=== PATIENT | male | born 1980 | race Caucasian/White ===

== ENCOUNTER → 2017-07-31 | Outpatient (CLI) | payer BC ==
--- NOTE | 2017-07-31 10:32 | US ---
EXAMINATION TYPE: US abdomen complete DATE OF EXAM: 07/31/2017 COMPARISON: NONE CLINICAL HISTORY: R74.8 Elevated liver enzymes. Elevated liver enzymes EXAM MEASUREMENTS: Liver Length: 19.4 cm Gallbladder Wall: 0.2 cm CBD: 0.4 cm Spleen: 12.2 cm Right Kidney: 12.4 x 5.1 x 4.7 cm Left Kidney: 12.5 x 6.0 x 6.1 cm *Technical limitations due to patient's body habitus and large amount of overlying bowel Pancreas: limited evaluation due to overlying bowel content Liver: enlarged, attenuating Gallbladder: no evidence of stones Evidence for sonographic Knight's sign: no CBD: limited evaluation Spleen: wnl Right Kidney: no evidence of hydronephrosis or mass Left Kidney: no evidence of hydronephrosis or mass Upper IVC: wnl Abd Aorta: visualized portions appear wnl, bifurcation obscured IMPRESSION: 1. Mild fatty infiltration of the enlarged liver.
== END | disposition home or self-care (01) ==
LOC: RADUSWWP 07:37
PROVIDERS: ATTEND Family Medicine
DX: K76.0 Fatty (change of) liver, not elsewhere classified (principal)
CPT/HCPCS: 76700

== ENCOUNTER → 2023-11-19 | Outpatient (CLI) | payer BC, OTHER ==
--- NOTE | 2023-11-19 17:56 | CA ---
Transthoracic Echo Report Name: Lang Murray Age: 43 Gender: M : 1980 Exam Date: 11/19/2023 16:06 Exam Location: [facility] Ht (in): 71 Wt (lb): 250 Ordering Physician: Arnol Pineda MD Attending/Referring Phys: Guerda Crane [facility] Business Management Manager Andra Russo RDCS Procedure CPT: Indications: I10 HYPERTENSION Cardiac Hx: Technical Quality: Fair Contrast 1: Total Dose (mL): Contrast 2: Total Dose (mL): MEASUREMENTS (Male / Female) Normal Values 2D ECHO LV Diastolic Diameter PLAX 4.9 cm 4.2 - 5.9 / 3.9 - 5.3 cm LV Systolic Diameter PLAX 3.4 cm IVS Diastolic Thickness 1.3 cm 0.6 - 1.0 / 0.6 - 0.9 cm LVPW Diastolic Thickness 1.3 cm 0.6 - 1.0 / 0.6 - 0.9 cm LV Relative Wall Thickness 0.5 RV Internal Dim ED PLAX 3.4 cm LA Systolic Diameter LX 3.2 cm 3.0 - 4.0 / 2.7 - 3.8 cm LV Diastolic Volume MOD 4C 134.4 cm??? LV Systolic Volume MOD 4C 52.8 cm??? LV Ejection Fraction MOD 4C 60.7 % LV Cardiac Index MOD 4C 2627.1 cm???/min???m??? LV Diastolic Length 4C 9.9 cm LV Systolic Length 4C 8.0 cm LV Diastolic Volume MOD 2C 147.4 cm??? LV Systolic Volume MOD 2C 62.2 cm??? LV Ejection Fraction MOD 2C 57.8 % LV Cardiac Index MOD 2C 2745.6 cm???/min???m??? LV Diastolic Length 2C 10.0 cm LV Systolic Length 2C 8.1 cm M-MODE Aortic Root Diameter MM 3.3 cm LA Systolic Diameter MM 2.6 cm LA Ao Ratio MM 0.8 DOPPLER AV Peak Velocity 176.7 cm/s AV Peak Gradient 12.5 mmHg Mitral E Point Velocity 103.7 cm/s Mitral A Point Velocity 103.7 cm/s Mitral E to A Ratio 1.0 MV Deceleration Time 204.9 ms FINDINGS Left Ventricle Left ventricular ejection fraction is estimated at 55-60 %. Left ventricular cavity size normal. Normal left ventricular systolic function with no obvious regional wall motion abnormalities. Mildly increased left ventricular wall thickness. Right Ventricle Mild right ventricular dilatation. Unable to estimate the right ventricular systolic pressure. Right Atrium Normal right atrial size. No right atrial thrombus or mass seen. Left Atrium Normal left atrial size. No left atrial thrombus or mass present. Mitral Valve Structurally normal mitral valve. No mitral stenosis, or prolapse.trace to mild mitral regurgitation. Aortic Valve Trileaflet aortic valve. No aortic valve stenosis or regurgitation. Tricuspid Valve Structurally normal tricuspid valve. No tricuspid stenosis, or prolapse.trace to mild tricuspid regurgitation. Pulmonic Valve Pulmonic valve not well visualized. No pulmonic regurgitation. Pericardium No pericardial or pleural effusion. Aorta Normal size aortic root and proximal ascending aorta. CONCLUSIONS 1. Normal left ventricular size and systolic function with left ventricular hypertrophy 2. Trace to mild mitral and tricuspid regurgitation Previewed by: Dr. Gamaliel New MD (Electronically Signed) Final Date: 19 November 2023 17:55
== END | disposition home or self-care (01) ==
LOC: RADECHMAIN 15:50
PROVIDERS: ATTEND Family Medicine
DX: I10 Essential (primary) hypertension (principal)
CPT/HCPCS: 93306

== ENCOUNTER → 2023-11-28 | Outpatient (CLI) | payer OTHER ==
--- NOTE | 2023-11-28 16:26 | US ---
EXAMINATION TYPE: US venous doppler duplex LE RT DATE OF EXAM: 11/28/2023 4:02 PM COMPARISON: NONE CLINICAL INDICATION: Male, 43 years old with history of M79.661 PAIN IN RIGHT LOWER LEG; Pain right l eg TECHNIQUE: The lower extremity deep venous system is examined utilizing real time linear array sonog katelynn with graded compression, color doppler sonography, and spectral doppler. SIDE PERFORMED: Right FINDINGS: VESSELS IMAGED: Common Femoral Vein Deep Femoral Vein Greater Saphenous Vein * Femoral Vein Popliteal Vein Small Saphenous Vein * Proximal Calf Veins (* superficial vessels) Grayscale, color doppler, spectral doppler imaging performed of the deep veins of the right lower ext remity. Complex area seen calf area. Measures grossly 1.6 cm. Right Leg: Negative for DVT IMPRESSION: 1. No evidence of deep vein thrombosis of the right lower extremity. 2. Complex area seen within the right calf soft tissues at site of pain. May represent a hematoma kang ju other etiologies. Correlate clinically. [facility], , 11/28/2023 4:23 PM
== END | disposition home or self-care (01) ==
LOC: RADUSWWP 15:42
PROVIDERS: ATTEND Family Medicine
DX: M79.661 Pain in right lower leg (principal)

== ENCOUNTER 2024-08-11 08:12 | Day surgery (SDC) | payer OTHER ==
[2024-08-10 10:55] VITALS: BMI 34.8
[~2024-08-11 08:12] MED LIST: LIDOCAINE 1% (10MG/ML) FOR IV START INTRADERMA PRN; ONDANSETRON 4 MG/2 ML VIAL IVP PRN
[2024-08-11] MEDS: IV FLUID CONTINUATION 1,000 ML IV ONE (08:30)
[2024-08-11 08:36] VITALS: RESP 16; TEMP 96.9
[2024-08-11] MEDS: LACTATED RINGERS 1,000 ML IV SCH (08:39)
[2024-08-11] MEDS: MIDAZOLAM 2 MG/2 ML VIAL IV ONE (08:41)
[2024-08-11] MEDS ORDERED: PROPOFOL 10 MG/ML 20 ML VIAL IV ONE (09:22)
--- NOTE | 2024-08-11 09:39 | P.PCN ---
Date of Procedure: 08/11/24 Procedure(s) Performed: BRIEF HISTORY: Patient is a 43-year-old pleasant white male scheduled for an elective colonoscopy as a part of screening for colon cancer/positive Cologuard PROCEDURE PERFORMED: Colonoscopy with biopsy and snare polypectomy. PREOPERATIVE DIAGNOSIS: Screening for colon cancer/positive Cologuard. IV sedation per Anesthesia. PROCEDURE: After informed consent was obtained, the patient, was brought into the endoscopy unit. IV sedation was administered by Anesthesia under continuous monitoring. Digital rectal examination was normal. Initially the Olympus CF-160 flexible video colonoscope was then inserted in the rectum, gradually advanced into the cecum without any difficulty. Careful examination was performed as the scope was gradually being withdrawn. Ileocecal valve and the appendiceal orifice were visualized and appeared normal. Prep was excellent. Mucosa of the cecum, ascending colon, had patchy areas of erythema. Friable mucosa consistent with colitis and biopsies were done from this area. Mucosa of the transverse colon, descending colon, sigmoid colon, and proximal rectum had erythema and friable mucosa consistent with mild colitis and biopsies were done to evaluate for inflammatory bowel disease. The distal rectum appeared normal. Retroflexion was performed in the rectum and no lesions were seen. The patient tolerated the procedure well. IMPRESSION: 5 mm and 6 mm hepatic rectal polyp status post cold snare polypectomy Mild diffuse colitis involving the entire colon with patchy areas of friable mucosa involving the cecum biopsies: Descending colon sigmoid colon and proximal rectum status post multiple biopsies to evaluate for inflammatory bowel disease RECOMMENDATIONS: Findings of this examination were discussed with the patient as well as his family. He was advised to follow-up with biopsy results. He will be seen in the office in 2 to 3 weeks. Recommended repeat colonoscopy in 5 years based on the biopsy results.
[2024-08-11 10:00] VITALS: BP 122/79; PULSE 82
== END 2024-08-11 10:14 | disposition home or self-care (01) ==
LOC: ORWHC2ENDO 08:12
PROVIDERS: ATTEND Internal Medicine Gastroenterology
DX: K51.90 Ulcerative colitis, unspecified, without complications (principal); K62.89 Other specified diseases of anus and rectum; I10 Essential (primary) hypertension; K21.9 Gastro-esophageal reflux disease without esophagitis; F17.200 Nicotine dependence, unspecified, uncomplicated; Z88.1 Allergy status to other antibiotic agents; Z79.899 Other long term (current) drug therapy
CPT/HCPCS: 88305; 88312; 45380; 45385; J2250; J2704